=== PATIENT | male | born 1990 | race Caucasian/White ===

== ENCOUNTER 2017-05-27 16:16 | Emergency (ER) | END 2017-05-27 17:41 | disposition home or self-care (01) | DX: S05.01XA Injury of conjunctiva and corneal abrasion without foreign body, right eye, initial encounter (principal); X58.XXXA Exposure to other specified factors, initial encounter; Y92.830 Public park as the place of occurrence of the external cause | CPT/HCPCS: Z7502; Z7610 ==

== ENCOUNTER 2019-02-12 22:04 | Emergency (ER) | payer SELFPAY ==
[~2019-02-12] VITALS: Wt 61.4 kg
[~2019-02-12 22:04] MED LIST: ACET325T33 PO; ERYTOPOI LEFT EYE
[2019-02-12 22:39] VITALS: BP 159/90; PULSE 66; RESP 18
== END 2019-02-13 00:05 | disposition left against medical advice (07) ==
LOC: FTE 22:04
DX: Z53.21 Procedure and treatment not carried out due to patient leaving prior to being seen by health care provider (principal)